=== PATIENT | female | born 1985 | race Caucasian/White ===

== ENCOUNTER 2017-12-23 08:10 | Day surgery (SDC) | payer MEDICAID ==
[2017-12-21 15:57] LABS: URINE HCG NEGATIVE (NEG)
[2017-12-21 16:12] LABS: BASOPHILS % (AUTO) 0.3 % (0-1); EOSINOPHILS # (AUTO) 0.3 X10'3 (0-0.9); EOSINOPHILS % (AUTO) 3.3 % (0-6); LYMPHOCYTES # (AUTO) 2.9 X10'3 (1.1-4.8); LYMPHOCYTES % (AUTO) 34.7 % (21-51); MEAN CORPUSCULAR HEMOGLOBIN 29.9 PG (27.0-31.0); MEAN CORPUSCULAR HGB CONC 34.6 % (33.0-36.5); MEAN CORPUSCULAR VOLUME 86.7 FL (78-98); MEAN PLATELET VOLUME 8.4 FL (7.4-10.4); MONOCYTES # (AUTO) 0.6 X10'3 (0-0.9); MONOCYTES % (AUTO) 7.2 % (2-12); NEUTROPHILS # (AUTO) 4.6 X10'3 (1.8-7.7); NEUTROPHILS % (AUTO) 54.5 % (42-75); PRE OP HEMATOCRIT 41.4 % (35.0-45.0); PRE OP HEMOGLOBIN 14.3 g/dL (12.0-16.0); PRE OP PLATELET COUNT 225 X10'3 (140-440); RED BLOOD COUNT 4.78 X10'6 (4.20-5.60); RED CELL DISTRIBUTION WIDTH 12.5 % (11.5-14.5)
[~2017-12-23] VITALS: Ht 167.6 cm; Wt 61.4 kg
[2017-12-23] VITALS (8 sets, daily range): BP systolic 100–114; BP diastolic 60–69
[~2017-12-23 08:10] MED LIST: PREN1TAB75 PO; [UNRECOGNIZED DRUG - REMARK] PO; cefazolin/dext.iso 2gm/50ml 50 ML IV ONE; famotidine 20mg tablet PO ONE; ringers solution, lacted 1,000 ML IV SCH
[2017-12-23] MEDS ORDERED: LIDOcaine 1% (10mg/ml) 2ml vial ONE (08:37)
[2017-12-23] MEDS ORDERED: ringers solution, lacted 1,000 ML IV SCH (09:04)
[2017-12-23] MEDS ORDERED: proCHLORperazine 10 MG/2 ml inj IV PRN (09:05)
[2017-12-23] MEDS ORDERED: ondansetron/PF 4mg/2ml inj IV PRN (09:05)
[2017-12-23] MEDS ORDERED: meperidine/PF 50mg/ml syringe IV PRN ×3 (09:05)
[2017-12-23] MEDS ORDERED: morphine 4 MG/ML inj SYRINge IV PRN ×2 (09:05)
[2017-12-23] MEDS ORDERED: rocuronium 10mg/ml inj IV ONE (09:41)
[2017-12-23] MEDS ORDERED: fentaNYL/PF 50MCG/1 ML 2ML syringe ONE (09:41)
[2017-12-23] MEDS ORDERED: propofol inj 20 ML IV ONE (09:41)
[2017-12-23] MEDS ORDERED: LIDOcaine 2% (20mg/ml) 5ml vial ONE (09:41)
[2017-12-23] MEDS ORDERED: dexamethasone sod phosphate 4mg/ml inj. ONE (09:41)
[2017-12-23] MEDS ORDERED: midazolam 2 mg/2 ml injection ONE (09:41)
[2017-12-23] MEDS ORDERED: epiNEPHrine 1 mg/ml inj ONE (10:14)
[2017-12-23] MEDS ORDERED: BUPIVAcaine/PF 2.5 mg/ml (0.25%) 30ml vial ONE ×2 (10:15→10:20)
[2017-12-23] MEDS ORDERED: sevoflurane 250ml liquid IH ONE (10:32)
[2017-12-23] MEDS ORDERED: neostigmine methylsulfate 1 MG/ML 10ml vial ONE (10:47)
[2017-12-23] MEDS ORDERED: glycopyrrolate 0.2mg/ml inj ONE (10:47)
[2017-12-23] MEDS ORDERED: ondansetron/PF 4mg/2ml inj ONE (10:47)
== END 2017-12-23 12:28 | disposition home or self-care (01) ==
LOC: PAS 08:10
PROVIDERS: ATTEND Obstetrics & Gynecology
DX: Z30.2 Encounter for sterilization (principal); K42.9 Umbilical hernia without obstruction or gangrene; F41.9 Anxiety disorder, unspecified; Z72.89 Other problems related to lifestyle; Z79.899 Other long term (current) drug therapy
CPT/HCPCS: 36415; 49585; 58670; 81025; 85025; A6258; A6402; J0171; J0690; J1100; J2001; J2250; J2405; J2704; J2710; J3010; J3490; J7120; A7000

== ENCOUNTER 2017-12-24 15:40 | Emergency (ER) | payer MEDICAID ==
[~2017-12-24] VITALS: Ht 167.6 cm; Wt 61.5 kg
[~2017-12-24 15:40] MED LIST changes: -cefazolin/dext.iso 2gm/50ml 50 ML IV ONE; -famotidine 20mg tablet PO ONE; -ringers solution, lacted 1,000 ML IV SCH
[2017-12-24 17:03] VITALS: BP 103/64
== END 2017-12-24 17:05 | disposition home or self-care (01) ==
LOC: ER 15:40
DX: K91.840 Postprocedural hemorrhage of a digestive system organ or structure following a digestive system procedure (principal); Z98.890 Other specified postprocedural states
CPT/HCPCS: 99283; A6258; A6402